=== PATIENT | male | born 1995 | race Caucasian/White ===

== ENCOUNTER 2021-09-06 17:06 | Emergency (ER) | payer SELFPAY ==
[2021-09-06 17:15] VITALS: BP 151/85
[2021-09-06 17:48] LABS: BASO # 0.04 K/mm3 (0.02-0.10); HEMATOCRIT 51.2 % (42.0-52.0); HEMOGLOBIN 17.1 g/dL (13.5-18.0); LYMPH# 1.78 K/mm3 (1.50-4.00); MEAN CELL VOLUME 94 fl (78-100); MEAN CORPUSCULAR HEMOGLOBIN 31 pg (27-31); MEAN CORPUSCULAR HGB CONC 33 g/dL (33-37); MONO # 0.39 K/mm3 (0.20-0.80); NEU # 1.79 K/mm3 (1.40-6.50); PLATELET COUNT 262 K/mm3 (130-400); RED BLOOD COUNT 5.44 M/mm3 (4.20-5.60); RED CELL DISTRIBUTION WIDTH 12.7 % (11.5-14.5)
[2021-09-06 17:59] LABS: ALBUMIN 4.6 g/dL (3.5-5.0); POTASSIUM 3.8 mmol/L (3.5-5.1); SODIUM 144 mmol/L (136-145)
[2021-09-06 18:01] LABS: GLUCOSE 110 mg/dL (75-110)
[2021-09-06 18:02] LABS: CARBON DIOXIDE 21 mmol/L (22-29); TOTAL PROTEIN 8.2 g/dL (6.4-8.3)
[2021-09-06 18:03] LABS: TOTAL BILIRUBIN 0.7 mg/dL (0.2-1.2)
[2021-09-06 18:07] LABS: AST-SGOT 27 U/L (5-34)
[2021-09-06 18:08] LABS: ALT/SGPT 21 U/L (0-55)
[2021-09-06 18:09] LABS: ACETAMINOPHEN < 1 ug/mL
[2021-09-06 18:24] LABS: URINE APPEARANCE CLEAR; URINE BILIRUBIN NEGATIVE (NEGATIVE); URINE COLOR YELLOW; URINE GLUCOSE NEGATIVE (NEGATIVE); URINE KETONE NEGATIVE (NEGATIVE); URINE NITRATE NEGATIVE (NEGATIVE); URINE PROTEIN(semi-quant) 2+ mg/dL (NEGATIVE); URINE UROBILINOGEN NORMAL (NORMAL)
[2021-09-06 18:25] LABS: URINE BLOOD TRACE (NEGATIVE); URINE LEUKOCYTE ESTERASE NEGATIVE (NEGATIVE); URINE MUCUS PRESENT (NOT PRESENT); URINE WBC 0-1 /hpf (0-3)
[2021-09-06 18:41] LABS: ALCOHOL IN-HOUSE 477 mg/dL (<10)
[2021-09-07] MEDS ORDERED: ATIVAN1 M1 PO (17:01)
== END 2021-09-06 20:10 | disposition home or self-care (01) ==
LOC: ED 17:06
PROVIDERS: Nurse Practitioner
DX: F10.10 Alcohol abuse, uncomplicated (principal); F39 Unspecified mood [affective] disorder; F17.220 Nicotine dependence, chewing tobacco, uncomplicated; Z20.822 Contact with and (suspected) exposure to COVID-19

== ENCOUNTER 2021-09-07 10:53 | Emergency (ER) | payer SELFPAY ==
[~2021-09-07] VITALS: Ht 182.9 cm; Wt 88.6 kg
[2021-09-07 11:39] LABS: BASO # 0.04 K/mm3 (0.02-0.10); HEMATOCRIT 50.2 % (42.0-52.0); HEMOGLOBIN 17.2 g/dL (13.5-18.0); LYMPH# 1.01 K/mm3 (1.50-4.00); MEAN CELL VOLUME 93 fl (78-100); MEAN CORPUSCULAR HEMOGLOBIN 32 pg (27-31); MEAN CORPUSCULAR HGB CONC 34 g/dL (33-37); MEAN PLATELET VOLUME 10.2 fl (7.4-10.4); MONO # 0.26 K/mm3 (0.20-0.80); NEU # 2.23 K/mm3 (1.40-6.50); PLATELET COUNT 229 K/mm3 (130-400); RED BLOOD COUNT 5.41 M/mm3 (4.20-5.60); RED CELL DISTRIBUTION WIDTH 12.5 % (11.5-14.5); WHITE BLOOD COUNT 3.6 K/mm3 (4.8-10.8)
[2021-09-07 11:48] LABS: ALBUMIN 4.8 g/dL (3.5-5.0); POTASSIUM 4.6 mmol/L (3.5-5.1); SODIUM 143 mmol/L (136-145)
[2021-09-07 11:50] LABS: CALCIUM 10.3 mg/dL (8.3-10.5)
[2021-09-07 11:51] LABS: GLUCOSE 103 mg/dL (75-110); TOTAL PROTEIN 8.5 g/dL (6.4-8.3)
[2021-09-07 11:52] LABS: CARBON DIOXIDE 25 mmol/L (22-29)
[2021-09-07 11:53] LABS: TOTAL BILIRUBIN 1.4 mg/dL (0.2-1.2)
[2021-09-07 11:54] LABS: ALCOHOL IN-HOUSE 114 mg/dL (<10)
[2021-09-07 11:56] LABS: AST-SGOT 31 U/L (5-34)
[2021-09-07 11:58] LABS: ALT/SGPT 23 U/L (0-55); LIPASE 70 U/L (8-78)
[2021-09-07 12:00] LABS: ACETAMINOPHEN < 1 ug/mL
[2021-09-07 13:02] LABS: URINE APPEARANCE CLOUDY; URINE COLOR YELLOW
[2021-09-07 13:03] LABS: URINE BILIRUBIN NEGATIVE (NEGATIVE); URINE BLOOD NEGATIVE (NEGATIVE); URINE GLUCOSE NEGATIVE (NEGATIVE); URINE KETONE NEGATIVE (NEGATIVE); URINE LEUKOCYTE ESTERASE TRACE (NEGATIVE); URINE MUCUS PRESENT (NOT PRESENT); URINE NITRATE NEGATIVE (NEGATIVE); URINE PROTEIN(semi-quant) TRACE mg/dL (NEGATIVE); URINE UROBILINOGEN NORMAL (NORMAL)
[2021-09-07] MEDS ORDERED: ATIVAN1 M1 PO (17:01)
[2021-09-07 17:03] VITALS: BP 142/90
== END 2021-09-07 17:03 | disposition home or self-care (01) ==
LOC: ED 10:53
PROVIDERS: Nurse Practitioner
DX: F32.A Depression, unspecified (principal); F41.0 Panic disorder [episodic paroxysmal anxiety]; F10.20 Alcohol dependence, uncomplicated
CPT/HCPCS: J2060; J2405; J7030